=== PATIENT | female | born 1945 | race Caucasian/White ===

== ENCOUNTER 2016-06-29 19:18 | Inpatient (IN) | payer MEDICARE ==
[~2016-06-29] VITALS: Ht 170.2 cm; Wt 77.1 kg
[~2016-06-29 19:18] MED LIST: ASPI81TA21 PO; LISI-357 PO; MMW SSP; MOTR200T PO; SIMV20TA PO; ZITH250T PO
[2016-06-29 19:20] VITALS: BP 158/67; PULSE 74; RESP 16; TEMP 98.6; O2SAT 100
[2016-06-29] MEDS ORDERED: SODIUM CHLOR 0.9% 1000 ML INJ 1,000 ML IV SCH (19:33)
[2016-06-29] MEDS ORDERED: METR-1 PO (19:37)
[2016-06-29] MEDS ORDERED: TRAM50TA PO (19:37)
[2016-06-29] MEDS ORDERED: LISI10TA3 PO (19:38)
[2016-06-29] MEDS ORDERED: CIPR-9 PO (19:38)
[2016-06-29] MEDS ORDERED: SIMV40TA PO (19:39)
[2016-06-29] MEDS ORDERED: ASPI81CH CHEW (19:39)
[2016-06-29] MEDS ORDERED: METF500T PO (19:39)
--- NOTE | 2016-06-29 19:41 | PD ---
HPI Chief Complaint: GI Complaint Time Seen by Provider: 19:27 Travel History International Travel<30 days: No Contact w/Intl Traveler<30days: No Traveled to known affect area: No History of Present Illness HPI 71-year-old female complains of left low quadrant abdominal pain. Patient states that the pain started a week ago and progressively worse since then. Patient states the pain combination of sharp and cramping pain localized to left low quadrant of the abdomen. Patient denies any pain radiation. Patient denies any fever chills. Patient denies any headache. Patient denies any chest pain or shortness of breath. Patient states that she started having recurrent nausea vomiting today. Patient was seen by personal physician yesterday and was diagnosed with diverticulitis. Patient was given prescription for Cipro and Flagyl and tramadol. Patient states that she started taking the medications since yesterday. Patient states that she has been unable to keep anything down today. On a scale of 1-10 the pain is a 6. Patient status post appendectomy, cholecystectomy and hysterectomy and oophorectomy. Patient has history of diverticulosis and kidney stone in the past. PFSH Past Medical History Arthritis: Yes Cardiovascular Problems: Yes (HTN) High Cholesterol: Yes Diabetes: Yes (Pre- (Metformin) ) Patient Takes Glucophage: Yes Diminished Hearing: No Hypertension: Yes Kidney Stones: Yes Tetanus Vaccination: > 5 Years Influenza Vaccination: Yes ?: Not Menopausal: Yes Past Surgical History Appendectomy: Yes Cholecystectomy: Yes Hysterectomy: Yes Other Surgery: Yes (rt carpal tunnel surgery) Social History Alcohol Use: Yes (occass. wine or beer) Tobacco Use: No (quit 1983 smoked for 20 yrs smoked 1 / ppd) Substance Use: No Allergies-Medications (Allergen,Severity, Reaction): Coded Allergies: Demerol (Verified Allergy, Severe, unknown, 06/29/16) Penicillin (Verified Allergy, Severe, unknown, 06/29/16) Tetanus Toxoid (Verified Allergy, Severe, swelling, 06/29/16) Ceclor (Verified Allergy, Mild, hives, 06/29/16) Reported Meds & Prescriptions Reported Meds & Active Scripts Active Reported Metformin (Metformin HCl) 500 Mg Tab 500 Mg PO BIDPC With meals Aspirin 81 Mg Chew 81 Mg CHEW DAILY Simvastatin 40 Mg Tab 40 Mg PO HS Lisinopril 10 Mg Tab 10 Mg PO DAILY Cipro (Ciprofloxacin HCl) 500 Mg Tab 500 Mg PO BID Flagyl (Metronidazole) 500 Mg Tab 500 Mg PO QID Tramadol (Tramadol HCl) 50 Mg Tab 50 Mg PO Q8H PRN Review of Systems General / Constitutional: No: Fever Eyes: No: Visual changes HENT: No: Headaches Cardiovascular: No: Chest Pain or Discomfort Respiratory: No: Shortness of Breath Gastrointestinal: Positive: Nausea, Vomiting, Abdominal Pain Genitourinary: No: Dysuria Musculoskeletal: No: Pain Skin: No Rash Neurologic: No: Weakness Psychiatric: No: Depression Endocrine: No: Polydipsia Hematologic/Lymphatic: No: Easy Bruising Physical Exam Narrative GENERAL: Well-nourished, well-developed patient. SKIN: Focused skin assessment warm/dry. HEAD: Normocephalic. EYES: No scleral icterus. No injection or drainage. NECK: Supple, trachea midline. No JVD or lymphadenopathy. CARDIOVASCULAR: Regular rate and rhythm without murmurs, gallops, or rubs. RESPIRATORY: Breath sounds equal bilaterally. No accessory muscle use. GASTROINTESTINAL: Abdomen soft, nondistended. Patient has moderate tenderness on palpation left lower quadrant of the abdomen. No rebound tenderness. No mass. MUSCULOSKELETAL: No cyanosis, or edema. BACK: Nontender without obvious deformity. No CVA tenderness. Neurologic exam normal. Data Data Last Documented VS Vital Signs Date Time Temp Pulse Resp B/P Pulse Ox O2 Delivery O2 Flow Rate FiO2 06/29/16 21:17 98.0 64 14 153/69 99 Room Air Orders Complete Blood Count With Diff (06/29/16 19:33) Comprehensive Metabolic Panel (06/29/16 19:33) Lipase (06/29/16 19:33) Prothrombin Time / Inr (Pt) (06/29/16 19:33) Act Partial Throm Time (Ptt) (06/29/16 19:33) Urinalysis - C+S If Indicated (06/29/16 19:33) Ct Abd/Pel W Iv Contrast(Rout) (06/29/16 19:33) Iv Access Insert/Monitor (06/29/16 19:33) Ecg Monitoring (06/29/16 19:33) Oximetry (06/29/16 19:33) Morphine Inj (Morphine Inj) (06/29/16 19:45) Ondansetron Inj (Zofran Inj) (06/29/16 19:45) Pantoprazole Inj (Protonix Inj) (06/29/16 19:45) Sodium Chlor 0.9% 1000 Ml Inj (Ns 1000 M (06/29/16 19:33) Urine Culture (06/29/16 20:38) Iohexol 350 Inj (Omnipaque 350 Inj) (06/29/16 21:46) Ondansetron Inj (Zofran Inj) (06/29/16 22:15) Labs Laboratory Tests Test 06/29/16 06/29/16 20:13 20:38 White Blood Count 6.7 TH/MM3 Red Blood Count 4.76 MIL/MM3 Hemoglobin 14.2 GM/DL Hematocrit 42.7 % Mean Corpuscular Volume 89.7 FL Mean Corpuscular Hemoglobin 29.7 PG Mean Corpuscular Hemoglobin 33.1 % Concent Red Cell Distribution Width 12.4 % Platelet Count 186 TH/MM3 Mean Platelet Volume 10.0 FL Neutrophils (%) (Auto) 72.4 % Lymphocytes (%) (Auto) 18.5 % Monocytes (%) (Auto) 8.2 % Eosinophils (%) (Auto) 0.6 % Basophils (%) (Auto) 0.3 % Neutrophils # (Auto) 4.9 TH/MM3 Lymphocytes # (Auto) 1.2 TH/MM3 Monocytes # (Auto) 0.5 TH/MM3 Eosinophils # (Auto) 0.0 TH/MM3 Basophils # (Auto) 0.0 TH/MM3 CBC Comment DIFF FINAL Differential Comment Prothrombin Time 10.8 SEC Prothromb Time International 1.0 RATIO Ratio Activated Partial 28.7 SEC Thromboplast Time Sodium Level 141 MEQ/L Potassium Level 3.7 MEQ/L Chloride Level 100 MEQ/L Carbon Dioxide Level 26.9 MEQ/L Anion Gap 14 MEQ/L Blood Urea Nitrogen 13 MG/DL Creatinine 0.81 MG/DL Estimat Glomerular Filtration 70 ML/MIN Rate Random Glucose 134 MG/DL Calcium Level 9.6 MG/DL Total Bilirubin 0.7 MG/DL Aspartate Amino Transf 17 U/L (AST/SGOT) Alanine Aminotransferase 24 U/L (ALT/SGPT) Alkaline Phosphatase 72 U/L Total Protein 7.6 GM/DL Albumin 3.9 GM/DL Lipase 183 U/L Urine Color [place] Urine Turbidity CLEAR Urine pH 6.5 Urine Specific [place] 1.014 Urine Protein NEG mg/dL Urine Glucose (UA) NEG mg/dL Urine Ketones 80 OR GREATER mg/dL Urine Occult Blood NEG Urine Nitrite NEG Urine Bilirubin NEG Urine Leukocyte Esterase MOD Urine RBC 4-9 /hpf Urine WBC 9-14 /hpf Urine Squamous Epithelial 0-5 /hpf Cells Urine Bacteria OCC /hpf Urine Mucus FEW /lpf Microscopic Urinalysis Comment CULTURE INDICATED MDM Medical Decision Making Medical Screen Exam Complete: Yes Emergency Medical Condition: Yes Interpretation(s) 21:36 PM. CBC within normal limit. CMP within normal limit. UA positive with WBC RBC and bacteria. 22:31 PM. Last Impressions Abdomen/Pelvis CT 06/29/161932 Signed Impressions: Service Date/Time: Wednesday, June 29, 2016 21:22 - CONCLUSION: Acute diverticulitis. Demetra See MD Differential Diagnosis Differential diagnosis including diverticulitis, UTI, pyelonephritis, nephrolithiasis. Narrative Course 71-year-old female with left low quadrant abdominal pain for a week. Patient has nausea vomiting today. Patient is on day #2 Cipro and Flagyl for diverticulitis. Normal saline solution liter IV bolus. Protonix 40 mg IV. Morphine 4 mg IV. Zofran 4 mg IV. Levaquin 750 mg IV. Flagyl 500 mg IV. Diagnosis Primary Impression: Acute diverticulitis Additional Impression: Failure of outpatient treatment Leo Tinsley MD Jun 29, 2016 19:41
[2016-06-29] MEDS ORDERED: ONDANSETRON HCL 4 MG/2 ML VIAL IVP ONE (19:45)
[2016-06-29] MEDS ORDERED: PANTOPRAZOLE SODIUM 40 MG VIAL IVP ONE (19:45)
[2016-06-29] MEDS ORDERED: MORPHINE SULFATE 4 MG/ML INJ IV PUSH ONE (19:45)
[2016-06-29 20:18] VITALS: O2SAT 100
[2016-06-29 20:21] LABS: AUTOMATED NEUTROPHIL # 4.9 TH/MM3 (1.8-7.7); BASOPHIL % 0.3 % (0.0-2.0); EOSINOPHIL % 0.6 % (0.0-4.0); HEMATOCRIT 42.7 % (35.0-46.0); HEMO FLAGS DIFF FINAL; LYMPH % 18.5 % (9.0-44.0); LYMPHOCYTE # 1.2 TH/MM3 (1.0-4.8); MEAN CELL VOLUME 89.7 FL (80.0-100.0); MEAN CORPUSCULAR HEMOGLOBIN 29.7 PG (27.0-34.0); MEAN CORPUSCULAR HGB CONC 33.1 % (32.0-36.0); MONO % 8.2 % (0.0-8.0); NEUT % 72.4 % (16.0-70.0); PLATELET COUNT 186 TH/MM3 (150-450); RED BLOOD COUNT 4.76 MIL/MM3 (4.00-5.30); RED CELL DISTRIBUTION WIDTH 12.4 % (11.6-17.2); WHITE BLOOD COUNT 6.7 TH/MM3 (4.0-11.0)
[2016-06-29 20:29] LABS: CHLORIDE 100 MEQ/L (98-107); POTASSIUM 3.7 MEQ/L (3.5-5.1); SODIUM (NA) 141 MEQ/L (136-145)
[2016-06-29 20:33] LABS: ANION GAP 14 MEQ/L (5-15); BICARBONATE 26.9 MEQ/L (21.0-32.0); BLOOD UREA NITROGEN 13 MG/DL (7-18)
[2016-06-29 20:35] LABS: APTT (PATIENT) 28.7 SEC (24.3-30.1); PROTHROMBIN TIME - PATIENT 10.8 SEC (9.8-11.6)
[2016-06-29 20:36] LABS: ALT (GPT) 24 U/L (10-53); AST (GOT) 17 U/L (15-37); GLOMERULAR FILTRATION RATE 70 ML/MIN (>89)
[2016-06-29 20:37] LABS: TOTAL BILIRUBIN ADULT 0.7 MG/DL (0.2-1.0)
[2016-06-29 20:38] LABS: ALKALINE PHOSPHATASE 72 U/L (45-117)
[2016-06-29 20:58] LABS: BLOOD, URINE NEG (NEG); GLUCOSE,URINE NEG (NEG); NITRITE,URINE NEG (NEG); PH, URINE 6.5 (5.0-8.5)
[2016-06-29 21:16] LABS: KETONE, URINE 80 OR GREATER mg/dL (NEG)
[2016-06-29 21:17] VITALS: BP 153/69; PULSE 64; RESP 14; TEMP 98; O2SAT 99
[2016-06-29 21:17] LABS: URINE COLOR AMBER (YELLW/STRAW)
[2016-06-29 21:19] LABS: MUCUS URINE FEW /lpf (OCC)
[2016-06-29 21:20] LABS: BACTERIA, URINE OCC /hpf; SQUAMOUS EPITHELIAL CELL URINE 0-5 /hpf (0-5)
[2016-06-29 21:22] LABS: COMMENT (UR) CULTURE INDICATED; CULTURE IF INDICATED CULTURE INDICATED
[2016-06-29] MEDS ORDERED: IOHEXOL 350 MG/ML 10 ML VIAL (for RAD DIAG) IV ONE (21:46)
--- NOTE | 2016-06-29 22:01 | RADHPO ---
EXAM DATE/TIME: 06/29/2016 21:22 [facility] COMPARISON: CT ABDOMEN & PELVIS W/O CONTRAST, January 26, 2012, 6:43. INDICATIONS : Left lower quadrant pain for one week. IV CONTRAST: 96 cc Omnipaque 350 (iohexol) IV ORAL CONTRAST: No oral contrast ingested. RADIATION DOSE: 10.37 CTDIvol (mGy) MEDICAL HISTORY : Hypertension. Renal calculi. Diabetes. SURGICAL HISTORY : Appendectomy. Cholecystectomy.Hysterectomy. ENCOUNTER: Initial ACUITY: 1 week PAIN SCALE: 5/10 LOCATION: Left lower quadrant TECHNIQUE: Volumetric scanning of the abdomen and pelvis was performed. Using automated exposure control and ad justment of the mA and/or kV according to patient size, radiation dose was kept as low as reasonably achievable to obtain optimal diagnostic quality images. FINDINGS: CT Abdomen: There are multiple simple cysts in the liver the largest measure 3.5 cm and the right hep atic lobe not significantly changed since 2011. One of them is probably a complicated cyst towards th e medial portion of the right hepatic lobe posteriorly slightly dense measuring 2.1 cm in size also n ot significantly changed. The spleen, pancreas, kidneys, adrenals are unremarkable. There is no evide nce for any appreciable pathological adenopathy, free fluid, or bowel obstruction. There is evidence for prior cholecystectomy. Common bile duct measures almost 1.1 cm in size from post cholecystectomy reservoir changes. CT pelvis: There is no evidence for mass, abscess formation, or any significant adenopathy within the pelvis. There are numerous diverticuli in the sigmoid colon with an area of diverticulitis at the ju nction of descending colon. There is moderate amount of stool throughout the colon. CONCLUSION: Acute diverticulitis. Demetra See MD on June 29, 2016 at 21:55 Board Certified Radiologist. This report was verified electronically.
[2016-06-29] MEDS ORDERED: ONDANSETRON HCL 4 MG/2 ML VIAL IV PUSH ONE (22:15)
[2016-06-29] MEDS ORDERED: BISACODYL 10 MG SUPP RECTAL PRN (22:45)
[2016-06-29] MEDS ORDERED: GLUCAGON 1 MG/ML VIAL OTHER PRN (22:45)
[2016-06-29] MEDS ORDERED: ACETAMINOPHEN/HYDROcodone 325 MG/5 MG TAB PO PRN (22:45)
[2016-06-29] MEDS ORDERED: MORPHINE SULFATE 4 MG/ML INJ IV PRN (22:45)
[2016-06-29] MEDS ORDERED: ONDANSETRON HCL 4 MG/2 ML VIAL IVP PRN (22:45)
[2016-06-29] MEDS ORDERED: SODIUM CHLORIDE 0.9% FLUSH 10 ML FLUSH IV FLUSH PRN (22:45)
[2016-06-29] MEDS ORDERED: metroNIDAZOLE 500 MG INJ 100 ML IV ONE (22:45)
[2016-06-29] MEDS ORDERED: LEVOFLOXACIN 750 MG PREMIX INJ 150 ML IV ONE (22:45)
[2016-06-29] MEDS ORDERED: DEXTROSE 50% IN WATER 50 ML VIAL(D50) IV PUSH PRN (22:45)
[2016-06-29] MEDS: SODIUM CHLOR 0.9% 1000 ML INJ 1,000 ML IV SCH (23:38)
[2016-06-29 23:43] VITALS: BP 131/63; TEMP 98.2
[2016-06-30] VITALS (7 sets, daily range): BP systolic 107–144; BP diastolic 53–65; PULSE 52–74; RESP 16–20; TEMP 97–98.6; O2SAT 94–98
[2016-06-30] MEDS: SODIUM CHLOR 0.9% 1000 ML INJ 1,000 ML IV SCH ×2 (00:56→17:12)
[2016-06-30] MEDS: ACETAMINOPHEN 325 MG TAB PO PRN ×3 (05:31→20:41)
[2016-06-30] MEDS: metroNIDAZOLE 500 MG INJ 100 ML IV SCH ×3 (05:31→21:58)
[2016-06-30] MEDS: INSULIN ASPART SUPPLEMENTAL SCALE SQ SCH ×4 (07:00→20:35)
[2016-06-30 07:42] LABS: AUTOMATED NEUTROPHIL # 3.3 TH/MM3 (1.8-7.7); BASOPHIL % 0.2 % (0.0-2.0); EOSINOPHIL # 0.1 TH/MM3 (0-0.4); EOSINOPHIL % 1.3 % (0.0-4.0); HEMATOCRIT 36.5 % (35.0-46.0); HEMO FLAGS DIFF FINAL; LYMPH % 23.9 % (9.0-44.0); LYMPHOCYTE # 1.2 TH/MM3 (1.0-4.8); MEAN CELL VOLUME 90.8 FL (80.0-100.0); MEAN CORPUSCULAR HEMOGLOBIN 30.7 PG (27.0-34.0); MEAN CORPUSCULAR HGB CONC 33.8 % (32.0-36.0); MONO % 11.2 % (0.0-8.0); NEUT % 63.4 % (16.0-70.0); PLATELET COUNT 152 TH/MM3 (150-450); RED BLOOD COUNT 4.01 MIL/MM3 (4.00-5.30); RED CELL DISTRIBUTION WIDTH 12.3 % (11.6-17.2); WHITE BLOOD COUNT 5.2 TH/MM3 (4.0-11.0)
[2016-06-30 07:54] LABS: ALKALINE PHOSPHATASE 64 U/L (45-117); ALT (GPT) 21 U/L (10-53); ANION GAP 10 MEQ/L (5-15); AST (GOT) 18 U/L (15-37); BICARBONATE 25.3 MEQ/L (21.0-32.0); BLOOD UREA NITROGEN 10 MG/DL (7-18); CHLORIDE 108 MEQ/L (98-107); GLOMERULAR FILTRATION RATE 100 ML/MIN (>89); POTASSIUM 3.8 MEQ/L (3.5-5.1); SODIUM (NA) 143 MEQ/L (136-145); TOTAL BILIRUBIN ADULT 0.5 MG/DL (0.2-1.0)
[2016-06-30] MEDS: CIPROFLOXACIN 400 MG PREMIX 200 ML IV SCH ×2 (08:01→20:30)
[2016-06-30] MEDS: SODIUM CHLORIDE 0.9% FLUSH 10 ML FLUSH IV FLUSH SCH ×2 (08:02→20:30)
--- NOTE | 2016-06-30 08:03 | HHI.HP ---
cc: Cherrie Scott MD [facility] Cherrie Scott MD Admission Diagnosis acute diverticulitis Diagnoses: (1) Acute diverticulitis Diagnosis: Principal (2) Nausea & vomiting Diagnosis: Principal (3) Hypertension Diagnosis: Secondary (4) Hyperlipidemia (5) Diabetes Diagnosis: Secondary Chief Complaint: Nausea, vomiting and abdominal pain Travel History International Travel<30 Days: No Contact w/Intl Traveler <30 Da: No Traveled to Known Affected Are: No History of Present Illness 71-year-old female with known history of hypertension, hyperlipidemia , prediabetes who presented to hospital because of abdominal pain and nausea vomiting. Patient states that her pain started approximately one week ago, the pain progressively got worse until Friday she went to her primary medical doctor 's office. At that time her primary medical doctor diagnosed her with diverticulitis and started her on Cipro and Flagyl. Yesterday she states the pain progressed got worse to a 7/10 on a pain scale and which she was taking the Flagyl she gets significant abdominal discomfort located in the left lower abdomen where she was having nausea and vomiting. She is unable to keep anything down so she came to the hospital for evaluation. Patient indicates that she was having worsening pain symptoms whenever she walked or bent over. Patient had workup done emergency department and found to have mild signs of dehydration, diverticulitis by CT. Patient failed outpatient management because she was unable tolerate by mouth medications due to GI discomfort, nausea and vomiting. Patient was recommended hospitalization for continued management and care. Patient denies any hematemesis, hematochezia, melena. Review of Systems Constitutional: DENIES: Diaphoretic episodes, Fatigue, Fever, Weight gain, Weight loss, Chills, Dizziness, Change in appetite, Night Sweats Eyes: DENIES: Blurred vision, Diplopia, Eye inflammation, Eye pain, Vision loss , Double Vision Ears, nose, mouth, throat: DENIES: Hearing loss, Vertigo, Nasal discharge, Throat pain, Ear Pain, Running Nose, Sinus Pain Respiratory: DENIES: Apneas, Cough, Snoring, Wheezing, Hemoptysis, Sputum production, Shortness of breath Cardiovascular: COMPLAINS OF: PND, DENIES: Chest pain, Palpitations, Syncope, Dyspnea on Exertion, Lower Extremity Edema, Orthopnea Gastrointestinal: COMPLAINS OF: Abdominal pain, Constipation, Nausea, Vomiting , DENIES: Black stools, Bloody stools, Diarrhea, Difficulty Swallowing, Anorexia Neurologic: DENIES: Abnormal gait, Headache, Localized weakness, Paresthesias, Seizures, Speech Problems, Tremor, Poor Balance Past Family Social History Past Medical History Hypertension Hyperlipidemia Diabetes Diverticulosis History kidney stones Past Surgical History Carpal tunnel surgery right wrist Appendectomy Cholecystectomy Hysterectomy Reported Medications Last Impressions Abdomen/Pelvis CT 06/29/16 193 Signed Impressions: Service Date/Time: Wednesday, June 29, 2016 21:22 - CONCLUSION: Acute diverticulitis. Demetra See MD Allergies: Coded Allergies: Demerol (Verified Allergy, Severe, unknown, 06/29/16) Penicillin (Verified Allergy, Severe, unknown, 06/29/16) Tetanus Toxoid (Verified Allergy, Severe, swelling, 06/29/16) Ceclor (Verified Allergy, Mild, hives, 06/29/16) Family History Reviewed is significant for mother and grandmother with diabetes. Father from myocardial infarction. Brother and sisters with strokes Social History Patient quit smoking 30 years ago prior to that she smoked one pack a cigarettes a day for 15 years. She does drink alcohol occasionally. Denies any illicit drugs. Patient is retired nurse Physical Exam Vital Signs Vital Signs Date Time Temp Pulse Resp B/P Pulse Ox O2 Delivery O2 Flow Rate FiO2 06/30/16 04:17 97.3 56 18 107/53 96 06/30/16 00:43 98.6 57 20 144/65 98 06/30/16 00:20 65 06/29/16 23:43 98.2 60 16 131/63 98 06/29/16 21:17 98.0 64 14 153/69 99 Room Air 06/29/16 20:26 14 06/29/16 20:18 100 Room Air 06/29/16 19:20 98.6 74 16 158/67 100 Physical Exam GENERAL: Well-developed, well-nourished, in no acute distress. alert and orientated HEENT: Head is normocephalic without any lesions or masses noted. Facial features are symmetric. Eyes: Pupils equal round reactive to light. Extraocular muscles are intact. Conjunctivae were clear. Oropharyngeal: Pharynx without any erythema edema. Tongue is midline without deviation. Buccal mucosa is moist without any masses or lesions NECK: Supple without any masses. Trachea midline no deviation. No JVD, no bruits are appreciated CARDIAC: Regular rhythm, regular rate. S1/S2 are heard. No murmurs gallops or rubs. LUNGS: Clear to auscultation bilaterally. No wheeze, rhonchi or rales. No use of accessory muscles on inspiration or expiration. ABDOMEN: Soft, nontender. Tenderness noted in the left lower quadrant with mild guarding. Bowel sounds heard in all 4 quadrants. No organomegaly or masses. Negative rebound, EXTREMITIES: No edema, pulses are equal bilaterally. No cyanosis or clubbing NEUROLOGY: Mood and affect appear appropriate. Cranial nerves II through XII grossly intact. Muscle strength 5/5 in upper and lower extremities bilaterally. Deep tendon reflexes are 2+ in upper and lower extremities bilaterally. Laboratory Laboratory Tests Test 06/29/16 06/29/16 06/30/16 20:13 20:38 06:26 White Blood Count 6.7 5.2 Red Blood Count 4.76 4.01 Hemoglobin 14.2 12.3 Hematocrit 42.7 36.5 Mean Corpuscular Volume 89.7 90.8 Mean Corpuscular Hemoglobin 29.7 30.7 Mean Corpuscular Hemoglobin 33.1 33.8 Concent Red Cell Distribution Width 12.4 12.3 Platelet Count 186 152 Mean Platelet Volume 10.0 10.5 Neutrophils (%) (Auto) 72.4 63.4 Lymphocytes (%) (Auto) 18.5 23.9 Monocytes (%) (Auto) 8.2 11.2 Eosinophils (%) (Auto) 0.6 1.3 Basophils (%) (Auto) 0.3 0.2 Neutrophils # (Auto) 4.9 3.3 Lymphocytes # (Auto) 1.2 1.2 Monocytes # (Auto) 0.5 0.6 Eosinophils # (Auto) 0.0 0.1 Basophils # (Auto) 0.0 0.0 CBC Comment DIFF FINAL DIFF FINAL Differential Comment Prothrombin Time 10.8 Prothromb Time International 1.0 Ratio Activated Partial 28.7 Thromboplast Time Sodium Level 141 Potassium Level 3.7 Chloride Level 100 Carbon Dioxide Level 26.9 Anion Gap 14 Blood Urea Nitrogen 13 Creatinine 0.81 Estimat Glomerular Filtration 70 Rate Random Glucose 134 Calcium Level 9.6 Total Bilirubin 0.7 Aspartate Amino Transf 17 (AST/SGOT) Alanine Aminotransferase 24 (ALT/SGPT) Alkaline Phosphatase 72 Total Protein 7.6 Albumin 3.9 Lipase 183 Urine Color [place] Urine Turbidity CLEAR Urine pH 6.5 Urine Specific [place] 1.014 Urine Protein NEG Urine Glucose (UA) NEG Urine Ketones 80 OR GREATER Urine Occult Blood NEG Urine Nitrite NEG Urine Bilirubin NEG Urine Leukocyte Esterase MOD Urine RBC 4-9 Urine WBC 9-14 Urine Squamous Epithelial 0-5 Cells Urine Bacteria OCC Urine Mucus FEW Microscopic Urinalysis Comment CULTURE INDICATED Date/Time Procedure Status Source Growth 06/29/16 20:38 Urine Culture Received Urine Clean Catch Pending Result Diagram: 06/30/16 0626 06/29/162012 Imaging Last Impressions Abdomen/Pelvis CT 06/29/16 1933 Signed Impressions: Service Date/Time: Wednesday, June 29, 2016 21:22 - CONCLUSION: Acute diverticulitis. Demetra See MD Assessment and Plan Problem List: (1) Acute diverticulitis ICD Code: K57.92 Status: Acute (2) Failure of outpatient treatment ICD Code: Z78.9 Status: Acute (3) Nausea & vomiting ICD Code: R11.2 Status: Acute (4) Diabetes ICD Code: E11.9 Status: Acute (5) Hyperlipidemia ICD Code: E78.5 Status: Acute (6) Hypertension ICD Code: I10 Status: Acute Assessment and Plan 71-year-old female with known history of hypertension, hyperlipidemia , diabetes, diverticulitis who presented to hospital because of GI intolerance to medications, nausea, vomiting, worsening abdominal pain Acute diverticulitis Patient failed outpatient management with by mouth medications due to nausea, vomiting, medication intolerance Continue IV fluids Continue Zofran for nausea or vomiting Continue IV Cipro, Flagyl Diet as tolerated Hypertension, hyperlipidemia Continue home medications Continue monitor blood pressure and heart rate Diabetes Hold metformin at this time Accu-Cheks with sliding scale insulin DVT prevention Sequential compression devices Written by Deangelo Way, acting as scribe for Dr. Eason on 06/30/16 at 08: 03. This note was transcribed by scribe Deangelo Way. I, Dr. Sabino Eason personally performed the history, physical exam, and medical decision making; and confirmed the accuracy of the information in the transcribed note. Authenticated by Dr. Sabino Eason on 06/30/16 at 10:10. Code Status Full code Discussed Condition With patient Physician Certification 2 Midnight Certification Type: Admission for Inpatient Services Order for Inpatient Services The services are ordered in accordance with Medicare regulations or non- Medicare payer requirements, as applicable. In the case of services not specified as inpatient-only, they are appropriately provided as inpatient services in accordance with the 2-midnight benchmark. Estimated LOS (days): 3 days is the estimated time the patient will need to remain in the hospital, assuming treatment plan goals are met and no additional complications. Post-Hospital Plan: Not yet determined Problem Qualifiers (1) Nausea & vomiting: (2) Hypertension: Qualified Code: I15.9 - Secondary hypertension (3) Hyperlipidemia: Qualified Code: E78.5 - Hyperlipidemia, unspecified hyperlipidemia type (4) Diabetes: Qualified Code: E11.8 - Type 2 diabetes mellitus with complication, without long-term current use of insulin Deangelo Way Jun 30, 2016 08:03 Sabino Eason MD Jun 30, 2016 10:11
[2016-06-30] MEDS: ASPIRIN 81 MG CHEW TAB CHEW SCH (08:14)
[2016-06-30] MEDS: LISINOPRIL 10 MG TAB PO SCH (08:19)
[2016-06-30] MEDS ORDERED: PRAVASTATIN SOD 40 MG TAB PO SCH (21:00)
[2016-07-01 00:48] VITALS: BP 116/63; PULSE 55; RESP 18; TEMP 98; O2SAT 98
[2016-07-01] MEDS: metroNIDAZOLE 500 MG INJ 100 ML IV SCH (06:22)
[2016-07-01] MEDS: SODIUM CHLOR 0.9% 1000 ML INJ 1,000 ML IV SCH (06:32)
[2016-07-01] MEDS: INSULIN ASPART SUPPLEMENTAL SCALE SQ SCH (06:33)
--- NOTE | 2016-07-01 07:48 | HHI.PR ---
Subjective Remarks Patient seen and examined today with Dr. Eason. Patient states that she is doing much better. She is tolerating diet. She had a bowel movement yesterday with improvement of her abdominal discomfort. Objective Vitals Vital Signs Date Time Temp Pulse Resp B/P Pulse Ox O2 Delivery O2 Flow Rate FiO2 07/01/16 04:57 07/01/16 00:48 98.0 55 18 116/63 98 06/30/16 20:59 98.4 61 16 130/62 96 06/30/16 16:00 97.0 63 18 142/62 95 06/30/16 15:14 20 06/30/16 12:00 97.3 55 18 121/62 94 06/30/16 08:00 97.5 52 17 119/58 95 06/30/16 08:00 74 I/O 06/30/16 06/30/16 06/30/16 07/01/16 07/01/16 07/01/16 07:00 15:00 23:00 07:00 15:00 23:00 Intake Total 1535 ml 1073 ml 756 ml 566 ml Balance 1535 ml 1073 ml 756 ml 566 ml Intake IV Total 1535 ml 1073 ml 756 ml 566 ml # Voids 3 4 # Bowel Movements 1 Result Diagram: 06/30/1662506/30/16625 Objective Remarks GENERAL: Well-developed, well-nourished, in no acute distress. alert and orientated HEENT: Head is normocephalic without any lesions or masses noted. Facial features are symmetric. Eyes: Extraocular muscles are intact. Conjunctivae were clear. NECK: Supple without any masses. Trachea midline no deviation. No JVD, CARDIAC: Regular rhythm, regular rate. S1/S2 are heard. No murmurs gallops or rubs. LUNGS: Clear to auscultation bilaterally. No wheeze, rhonchi or rales. No use of accessory muscles on inspiration or expiration. ABDOMEN: Soft, nontender. Very mild tenderness noted in the left lower quadrant.. Bowel sounds heard in all 4 quadrants. No organomegaly or masses. Negative rebound, negative guarding EXTREMITIES: No edema, pulses are equal bilaterally. No cyanosis or clubbing NEUROLOGY: Mood and affect appear appropriate. Cranial nerves II through XII grossly intact. Moving all extremities, speech is clear Urinary Catheter: No Vascular Central Line Catheter: No A/P Problem List: (1) Acute diverticulitis ICD Code: K57.92 Status: Acute (2) Failure of outpatient treatment ICD Code: Z78.9 Status: Acute (3) Hyperlipidemia ICD Code: E78.5 Status: Chronic (4) Diabetes ICD Code: E11.9 Status: Chronic (5) Hypertension ICD Code: I10 Status: Chronic (6) Nausea & vomiting ICD Code: R11.2 Status: Resolved Assessment and Plan 71-year-old female with known history of hypertension, hyperlipidemia , diabetes, diverticulitis who presented to hospital because of GI intolerance to medications, nausea, vomiting, worsening abdominal pain Acute diverticulitis Patient failed outpatient management with by mouth medications due to nausea, vomiting, medication intolerance Discontinue IV fluids, patient tolerating liquids and diet at this time Continue Zofran for nausea or vomiting Continue IV Cipro, Flagyl, switch to by mouth medications to evaluate for medication tolerance Diet as tolerated Hypertension, hyperlipidemia Continue home medications Continue monitor blood pressure and heart rate Diabetes Resume metformin at this time Discontinue Accu-Cheks with sliding scale insulin DVT prevention Sequential compression devices Written by Deangelo Way, acting as scribe for Dr. Eason on 07/01/16 at 07: 48. This note was transcribed by scribe Deangelo Way. I, Dr. Sabino Eason personally performed the history, physical exam, and medical decision making; and confirmed the accuracy of the information in the transcribed note. Authenticated by Dr. Sabino Eason on 07/01/16 at 09:15. Problem Qualifiers (1) Hyperlipidemia: Qualified Code: E78.5 - Hyperlipidemia, unspecified hyperlipidemia type (2) Diabetes: Qualified Code: E11.8 - Type 2 diabetes mellitus with complication, without long-term current use of insulin (3) Hypertension: Qualified Code: I15.9 - Secondary hypertension (4) Nausea & vomiting: Deangelo Way July 01, 2016 07:48 Sabino Eason MD July 01, 2016 09:16
[2016-07-01 08:00] VITALS: BP_SYST 127; BP_SYST 145; BP_SYST 152; BP_DIAS 63; BP_DIAS 70; BP_DIAS 84; PULSE 51; RESP 18; TEMP 97.9; O2SAT 98
[2016-07-01] MEDS ORDERED: metFORMIN HCL 500 MG TAB PO SCH (09:00)
[2016-07-01] MEDS: LISINOPRIL 10 MG TAB PO SCH (09:51)
[2016-07-01] MEDS: ASPIRIN 81 MG CHEW TAB CHEW SCH (09:51)
[2016-07-01] MEDS: SODIUM CHLORIDE 0.9% FLUSH 10 ML FLUSH IV FLUSH SCH (09:52)
[2016-07-01] MEDS ORDERED: CIPROFLOXACIN 500 MG TAB PO SCH (10:00)
[2016-07-01 12:00] VITALS: BP 137/76; PULSE 54; RESP 18; TEMP 98.2; O2SAT 97
[2016-07-01] MEDS ORDERED: metroNIDAZOLE 500 MG TAB PO SCH (14:00)
--- NOTE | 2016-07-01 14:10 | HHI.DS ---
Discharge Summary Admission Date Jun 29, 2016 at 22:47 Discharge Date: July 01, 2016 Admitting Diagnosis acute diverticulitis (1) Acute diverticulitis ICD Code: K57.92 Diagnosis: Principal (2) Failure of outpatient treatment ICD Code: Z78.9 (3) Hyperlipidemia ICD Code: E78.5 (4) Diabetes ICD Code: E11.9 (5) Hypertension ICD Code: I10 (6) Nausea & vomiting ICD Code: R11.2 Procedures none Brief History - From Admission 71-year-old female with known history of hypertension, hyperlipidemia , prediabetes who presented to hospital because of abdominal pain and nausea vomiting. Patient states that her pain started approximately one week ago, the pain progressively got worse until Friday she went to her primary medical doctor 's office. At that time her primary medical doctor diagnosed her with diverticulitis and started her on Cipro and Flagyl. Yesterday she states the pain progressed got worse to a 7/10 on a pain scale and which she was taking the Flagyl she gets significant abdominal discomfort located in the left lower abdomen where she was having nausea and vomiting. She is unable to keep anything down so she came to the hospital for evaluation. Patient indicates that she was having worsening pain symptoms whenever she walked or bent over. Patient had workup done emergency department and found to have mild signs of dehydration, diverticulitis by CT. Patient failed outpatient management because she was unable tolerate by mouth medications due to GI discomfort, nausea and vomiting. Patient was recommended hospitalization for continued management and care. Patient denies any hematemesis, hematochezia, melena. CBC/BMP: 06/30/16 0626 06/30/16 0626 Significant Findings Laboratory Tests Test 06/29/16 06/29/16 06/30/16 20:13 20:38 06:26 Neutrophils (%) (Auto) 72.4 % (16.0-70.0) Monocytes (%) (Auto) 8.2 % (0.0-8.0) 11.2 % (0.0-8.0) Estimat Glomerular Filtration 70 ML/MIN (>89) Rate Random Glucose 134 MG/DL (74-106) Urine Color HAMIDA (YELLW/STRAW) Urine Ketones 80 OR GREATER mg/dL (NEG) Urine Leukocyte Esterase MOD (NEG) Urine RBC 4-9 /hpf (0-3) Urine WBC 9-14 /hpf (0-5) Urine Bacteria OCC /hpf (NONE) Urine Mucus FEW /lpf (OCC) Chloride Level 108 MEQ/L (98-107) Calcium Level 8.3 MG/DL (8.5-10.1) Total Protein 6.1 GM/DL (6.4-8.2) Albumin 3.1 GM/DL (3.4-5.0) Imaging Last Impressions Abdomen/Pelvis CT 06/29/16 1933 Signed Impressions: Service Date/Time: Friday, June 29, 2016 21:22 - CONCLUSION: Acute diverticulitis. Demetra See MD PE at Discharge GENERAL: Well-developed, well-nourished, in no acute distress. alert and orientated HEENT: Head is normocephalic without any lesions or masses noted. Facial features are symmetric. Eyes: Extraocular muscles are intact. Conjunctivae were clear. NECK: Supple without any masses. Trachea midline no deviation. No JVD, CARDIAC: Regular rhythm, regular rate. S1/S2 are heard. No murmurs gallops or rubs. LUNGS: Clear to auscultation bilaterally. No wheeze, rhonchi or rales. No use of accessory muscles on inspiration or expiration. ABDOMEN: Soft, nontender. Very mild tenderness noted in the left lower quadrant.. Bowel sounds heard in all 4 quadrants. No organomegaly or masses. Negative rebound, negative guarding EXTREMITIES: No edema, pulses are equal bilaterally. No cyanosis or clubbing NEUROLOGY: Mood and affect appear appropriate. Cranial nerves II through XII grossly intact. Moving all extremities, speech is clear Hospital Course Patient admitted secondary to acute diverticulitis after failing outpatient therapy; she was started on IV antibiotics including Cipro and Flagyl, IV fluid hydration and her diet was advanced accordingly. She was continued on treatment for other chronic medical conditions. Prior to discharge, patient was switched to by mouth antibiotics and she tolerated her diet without any complication nausea and vomiting. Vital remained stable. DVT and GI prophylaxis were provided. Pt Condition on Discharge: Stable Discharge Disposition: Discharge Home Discharge Time: <= 30 minutes Discharge Instructions DIET: Follow Instructions for: Diabetic Diet Activities you can perform: Regular-No Restrictions Follow up Referrals: PCP Follow-up - 1 Week Continued Medications: Aspirin (Aspirin) 81 Mg Chew 81 MG CHEW DAILY Ref 0 TAB Ciprofloxacin (Cipro) 500 Mg Tab 500 MG PO BID Infection Ref 0 TAB Lisinopril (Lisinopril) 10 Mg Tab 10 MG PO DAILY #30 Ref 0 TAB Metformin (Metformin) 500 Mg Tab 500 MG PO BIDPC With meals Blood Sugar Management #60 Ref 0 TAB Metronidazole (Flagyl) 500 Mg Tab 500 MG PO QID Infection Ref 0 TAB Simvastatin (Simvastatin) 40 Mg Tab 40 MG PO HS Cholesterol Management #30 Ref 0 TAB Tramadol (Tramadol) 50 Mg Tab 50 MG PO Q8H PRN PAIN Ref 0 TAB Sabino Eason MD July 01, 2016 14:10
== END 2016-07-01 15:30 | disposition home or self-care (01) | DRG 392 ==
LOC: PHED 19:18 → PHEDA 22:47 → PH3A 23:58
PROVIDERS: ADMIT Hospitalist; ATTEND Hospitalist
DX: K57.92 Diverticulitis of intestine, part unspecified, without perforation or abscess without bleeding (principal); I15.9 Secondary hypertension, unspecified; E11.9 Type 2 diabetes mellitus without complications; E86.0 Dehydration; R11.2 Nausea with vomiting, unspecified; Z87.891 Personal history of nicotine dependence; Z88.1 Allergy status to other antibiotic agents; Z88.5 Allergy status to narcotic agent; Z88.0 Allergy status to penicillin; Z88.7 Allergy status to serum and vaccine; Z79.84 Long term (current) use of oral hypoglycemic drugs; Z87.442 Personal history of urinary calculi; M19.90 Unspecified osteoarthritis, unspecified site; E78.00 Pure hypercholesterolemia, unspecified; E78.5 Hyperlipidemia, unspecified; Z82.49 Family history of ischemic heart disease and other diseases of the circulatory system; Z83.3 Family history of diabetes mellitus; Z82.3 Family history of stroke
CPT/HCPCS: 74177; 80053; 81001; 82948; 83690; 85025; 85610; 85730; 87086; 96361; 96374; 96375; 96376; C9113; J0744; J1956; J2270; J2405; J7030; Q9967